=== PATIENT | male | born 1950 | race Caucasian/White ===

== ENCOUNTER 2017-01-31 20:05 | Emergency (ER) | payer OTHER, MEDICAID ==
[2017-01-31 21:00] LABS: BASOPHILS % (AUTO) 0.5 %; EOSINOPHILS # (AUTO) 0.4 10^3/uL (0.0-0.7); EOSINOPHILS % (AUTO) 3.8 %; HCT - HEMATOCRIT 44.3 % (42.0-52.0); HGB - HEMOGLOBIN 14.6 g/dL (14.0-18.0); LYMPHOCYTES % (AUTO) 49.6 %; MEAN CORPUSCULAR HEMOGLOBIN 27.3 pg (27.0-31.0); MEAN CORPUSCULAR VOLUME 82.7 fL (80.0-94.0); MEAN PLATELET VOLUME 8.5 fL (7.4-11.4); MONOCYTES # (AUTO) 0.5 10^3/uL (0.0-1.0); MONOCYTES % (AUTO) 5.4 %; NEUTROPHILS # (AUTO) 4.1 10^3/uL (1.5-6.6); NEUTROPHILS % (AUTO) 40.7 %; RED BLOOD COUNT 5.36 10^6/uL (4.70-6.10); RED CELL DISTRIBUTION WIDTH 14.7 % (12.0-15.0)
[2017-01-31 21:12] LABS: ALBUMIN/GLOBULIN RATIO 1.1 (1.0-2.2); BILIRUBIN,TOTAL 0.4 mg/dL (0.2-1.0); CALCIUM 10.2 mg/dL (8.5-10.3); TOTAL PROTEIN 7.9 g/dL (6.7-8.2)
[2017-01-31] MEDS: IOPAMIDOL-300 100 ML VIAL IVP ONE (21:57)
--- NOTE | 2017-01-31 22:36 | CT Preliminary Report ---
Exam: CT Chest W/ IMPRESSION: 1. No acute posttraumatic findings are seen in the chest. [facility] SITE ID: [id number]
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
[2017-01-31 22:50] VITALS: BP 176/92
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
--- NOTE | 2017-01-31 22:58 | CT Preliminary Report ---
Exam: CT Head W/O IMPRESSION: No CT evidence of acute intracranial abnormality, specifically no CT evidence of acute infarct, intra cranial hemorrhage, mass effect, midline shift, or hydrocephalus. [facility] SITE ID: [id number]
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
--- NOTE | 2017-01-31 23:53 | CT Preliminary Report ---
Exam: CT Cervical Spine W/O IMPRESSION: 1. No evidence of acute fracture or malalignment. No prevertebral soft tissue swelling. 2. Mild multilevel degenerative spondylosis, as detailed above. [facility] SITE ID: [id number]
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
== END 2017-01-31 23:13 | disposition home or self-care (01) ==
LOC: ED 20:05
DX: R51 Headache (principal); R10.9 Unspecified abdominal pain; R07.9 Chest pain, unspecified; V43.52XA Car driver injured in collision with other type car in traffic accident, initial encounter; Y92.488 Other paved roadways as the place of occurrence of the external cause; N20.0 Calculus of kidney; Z87.442 Personal history of urinary calculi; N21.0 Calculus in bladder; K76.0 Fatty (change of) liver, not elsewhere classified; E10.9 Type 1 diabetes mellitus without complications; Z79.4 Long term (current) use of insulin; Z79.84 Long term (current) use of oral hypoglycemic drugs
CPT/HCPCS: 70450; 71260; 72125; 74177; 80053; 83690; 85025; 99284